=== PATIENT | male | born 2000 | race Caucasian/White ===

== ENCOUNTER 2022-02-25 08:22 | Emergency (ER) | payer BC ==
[2022-02-25 08:33] VITALS: BP 105/53; PULSE 72; RESP 18; TEMP 101.1
[2022-02-25] MEDS ORDERED: IBUPROFEN 600 MG TAB PO STA (08:41)
--- NOTE | 2022-02-25 08:44 | ED ---
Fever HPI - General Chief Complaint: Fever Stated Complaint: Fever Time Seen by Provider: 02/25/22 08:35 Source: patient, RN notes reviewed Mode of arrival: ambulatory Limitations: no limitations - History of Present Illness Initial Comments: This a 29-year-old male presents emergency Department chief complaint of a fever. Patient states started a couple days ago. Patient states that he noticed he had shaking chills and a fever at work in which she went to urgent care for. Patient states that he was swabbed for: Flu but states he did not have the results. Patient denies any chest pain. Patient states that he initially bent over to lift something up and sat up very quickly became lightheaded urgent care told that he should have a CAT scan because the symptoms. Patient states has no complaints of current headache symptoms. Patient states that is not having facial pain. Patient has no focal weakness. No vomiting. - Related Data Allergies Allergy/AdvReac Type Severity Reaction Status Date / Time No Known Allergies Allergy Verified 02/25/22 08:32 Review of Systems ROS Statement: Those systems with pertinent positive or pertinent negative responses have been documented in the HPI. ROS Other: All systems not noted in ROS Statement are negative. Past Medical History Past Medical History: No Reported History History of Any Multi-Drug Resistant Organisms: None Reported Past Surgical History: No Surgical Hx Reported Past Psychological History: Anxiety Smoking Status: Vaper Past Alcohol Use History: Occasional Past Drug Use History: Marijuana General Exam Limitations: no limitations General appearance: alert, in no apparent distress Head exam: Present: atraumatic, normocephalic, normal inspection Eye exam: Present: normal appearance, PERRL, EOMI. Absent: scleral icterus, conjunctival injection, periorbital swelling ENT exam: Present: normal exam, normal oropharynx, mucous membranes moist Neck exam: Present: normal inspection, full ROM. Absent: tenderness, meningismus, lymphadenopathy Respiratory exam: Present: normal lung sounds bilaterally. Absent: respiratory distress, wheezes, rales, rhonchi, stridor Cardiovascular Exam: Present: regular rate, normal rhythm, normal heart sounds. Absent: systolic murmur, diastolic murmur, rubs, gallop, clicks GI/Abdominal exam: Present: soft, normal bowel sounds. Absent: distended, tenderness, guarding, rebound, rigid Extremities exam: Present: full ROM. Absent: tenderness Back exam: Absent: CVA tenderness (R), CVA tenderness (L) Neurological exam: Present: alert, oriented X3, CN II-XII intact Course Vital Signs 02/25/22 08:27 Temperature 101.1 F H Pulse Rate 72 Respiratory 18 Rate Blood Pressure 105/53 O2 Sat by Pulse 98 Oximetry Medical Decision Making - Medical Decision Making Patient is COVID-19 positive. Patient's vitals are stable. Patient was given antipyretics were discussed treatment of his fever at home and increasing fluids and return parameters. - Lab Data Lab Results 02/25/22 Range/Units 08:45 Coronavirus (PCR) Detected A (Not Detectd) Disposition Clinical Impression: COVID-19 Disposition: HOME SELF-CARE Condition: Stable Instructions (If sedation given, give patient instructions): COVID-19 (Coronavirus Disease 2019) (ED) Additional Instructions: Please return to the Emergency Department if symptoms worsen or any other concerns. Is patient prescribed a controlled substance at d/c from ED?: No Referrals: Radha Hernandez MD [Primary Care Provider] - 1-2 days Time of Disposition: 09:08
--- NOTE | 2022-02-25 09:02 | XR ---
EXAMINATION TYPE: XR chest 2V DATE OF EXAM: 02/25/2022 COMPARISON: None INDICATION: Fever TECHNIQUE: Frontal and lateral views of the chest are obtained. FINDINGS: The heart size is normal. The pulmonary vasculature is normal. The lungs are clear. IMPRESSION: 1. No acute pulmonary process.
== END 2022-02-25 09:21 | disposition home or self-care (01) ==
LOC: EC 08:22
DX: U07.1 COVID-19 (principal); F17.200 Nicotine dependence, unspecified, uncomplicated
CPT/HCPCS: 71046; 87502; 87635; 99284

== ENCOUNTER → 2022-02-26 | Outpatient (CLI) | payer BC ==
--- NOTE | 2022-02-26 13:30 | XR ---
EXAMINATION TYPE: XR cervical spine comp DATE OF EXAM: 02/26/2022 CLINICAL HISTORY: pain COMPARISON: NONE TECHNIQUE: Frontal, lateral, oblique, swimmers, and open mouth view of the cervical spine are obtaine d. FINDINGS: The cervical spine is visualized in its entirety from C1 thru the top of T1 level. It is s atisfactory in alignment without evidence of acute fracture or dislocation. The pre-vertebral soft t issue appears within normal limits. Mild degenerative disc space narrowing at C5-6 and C6-7. The C1-C 2 articulation is unremarkable on the open mouth view. The oblique images are within normal limits. IMPRESSION: No acute fracture or dislocation is seen in the cervical spine.ICD 10 NO FRACTURE, INITI AL EVALUATION
== END | disposition home or self-care (01) ==
LOC: RADXRMAIN 12:59
PROVIDERS: ATTEND Internal Medicine
DX: M54.2 Cervicalgia (principal)
CPT/HCPCS: 72050

== ENCOUNTER 2023-10-14 16:48 | Emergency (ER) | payer BC ==
[2023-10-14 17:23] VITALS: TEMP 98.6
--- NOTE | 2023-10-14 18:09 | ED ---
ENT HPI - General Source: patient Mode of arrival: ambulatory Limitations: no limitations <Shan Aguero - Last Filed: 10/14/23 18:09> - General Source: patient, RN notes reviewed, old records reviewed - History of Present Illness MD complaint: sore throat -: days(s) (8) Location: throat Severity scale (1-10): 8 Quality: constant Consistency: constant Improves with: none Worsens with: swallowing (feels like "shards of glass") Associated Symptoms: pain with swallowing, sore throat, other (nausea) <Germain Musa - Last Filed: 10/14/23 20:38> - General Chief complaint: ENT Stated complaint: Cough, poss Strep Time Seen by Provider: 10/14/23 19:42 - History of Present Illness Initial comments: 23-year-old male presenting to the ED with a chief complaint of sore throat. Patient states he believes he has strep throat due to him having a sore throat for the past 7-10 days. (Shan Aguero) 23-year-old nontoxic-appearing male presents to the emergency room with complaints of 8 days of sore throat like "shards of glass". States that his friend's child was positive for strep throat last week. He did go to urgent care yesterday and was tested for strep and negative. Patient states that yesterday he developed nausea with sore throat. Has had strep in the past and states it feels similar. He denies any fevers. No abdominal pain. Mild cough with no sinus pressure or post nasal drip. (Germain Musa) - Related Data Allergies Allergy/AdvReac Type Severity Reaction Status Date / Time No Known Allergies Allergy Verified 10/14/23 17:04 Review of Systems ROS Other: All systems not noted in ROS Statement are negative. <Shan Aguero - Last Filed: 10/14/23 18:09> ROS Other: All systems not noted in ROS Statement are negative. <Germain Musa - Last Filed: 10/14/23 20:38> ROS Statement: Those systems with pertinent positive or pertinent negative responses have been documented in the HPI. Past Medical History Past Medical History: No Reported History History of Any Multi-Drug Resistant Organisms: None Reported Past Surgical History: No Surgical Hx Reported Past Psychological History: Anxiety Smoking Status: Vaper Past Alcohol Use History: Occasional Past Drug Use History: Marijuana <Shan Aguero - Last Filed: 10/14/23 18:09> General Exam Limitations: no limitations General appearance: alert, in no apparent distress Neck exam: Present: normal inspection Extremities exam: Present: normal inspection Back exam: Present: normal inspection Neurological exam: Present: alert <Shan Aguero - Last Filed: 10/14/23 18:09> Limitations: no limitations General appearance: alert, in no apparent distress Head exam: Present: atraumatic, normocephalic Eye exam: Present: normal appearance. Absent: scleral icterus, conjunctival injection, periorbital swelling, periorbital tenderness ENT exam: Present: normal oropharynx, mucous membranes moist Neck exam: Present: normal inspection, full ROM. Absent: tenderness, meningismus, lymphadenopathy, thyromegaly Respiratory exam: Present: normal lung sounds bilaterally. Absent: respiratory distress, accessory muscle use Cardiovascular Exam: Present: regular rate, normal rhythm GI/Abdominal exam: Present: soft. Absent: tenderness Extremities exam: Present: full ROM. Absent: tenderness Neurological exam: Present: alert, oriented X3 Psychiatric exam: Present: normal affect, normal mood Skin exam: Present: warm, dry, normal color. Absent: cyanosis, diaphoretic, petechiae, pallor <Germain Musa - Last Filed: 10/14/23 20:38> Course Vital Signs 10/14/23 10/14/23 17:02 20:32 Temperature 98.6 F Pulse Rate 83 81 Respiratory 16 20 Rate Blood Pressure 120/77 138/82 O2 Sat by Pulse 98 98 Oximetry Medical Decision Making <Shan Aguero - Last Filed: 10/14/23 18:09> <Germain Musa - Last Filed: 10/14/23 20:38> - Medical Decision Making Quicknote portion performed. Signed Shan Aguero PA-C (Shan Aguero) Was pt. sent in by a medical professional or institution ([facility], DRILL INSTRUCTOR, urgent care, hospital, or detention...) When possible be specific @ -No Did you speak to anyone other than the patient for history (EMS, parent, family, police, friend...)? What history was obtained from this source @ -No Did you review nursing and triage notes (agree or disagree)? Why? @ -I reviewed and agree with nursing and triage notes Were old charts reviewed (outside hosp., previous admission, EMS record, old EKG , old radiological studies, urgent care reports/EKG's, detention records)? Report findings @ -No old charts were reviewed Differential Diagnosis (chest pain, altered mental status, abdominal pain women, abdominal pain men, vaginal bleeding, weakness, fever, dyspnea, syncope, headache, dizziness, GI bleed, back pain, seizure, CVA, palpatations, mental health, musculoskeletal)? @ -Coronavirus, influenza, strep pharyngitis, URI EKG interpreted by me (3pts min.). @ -n/a X-rays interpreted by me (1pt min.). @ -None done CT interpreted by me (1pt min.). @ -None done U/S interpreted by me (1pt. min.). @ -None done What testing was considered but not performed or refused? (CT, X-rays, U/S, labs)? Why? @ -None What meds were considered but not given or refused? Why? @ -None Did you discuss the management of the patient with other professionals (professionals i.e. , PA, DRILL INSTRUCTOR, lab, RT, psych nurse, social media campaign manager, department chairperson, teacher, [employer]. revenue officer, binder caser)? Give summary @ -No Was smoking cessation discussed for >3mins.? @ -yes directed to stop vaping Was critical care preformed (if so, how long)? @ -No Were there social determinants of health that impacted care today? How? (Homelessness, low income, unemployed, alcoholism, drug addiction, transportation, low edu. Level, literacy, decrease access to med. care, intermediate, rehab)? @ -No Was there de-escalation of care discussed even if they declined (Discuss DNR or withdrawal of care, Hospice)? DNR status @ -No What co-morbidities impacted this encounter? (DM, HTN, Smoking, COPD, CAD, Cancer, CVA, ARF, Chemo, Hep., AIDS, mental health diagnosis, sleep apnea, morbid obesity)? @ -None Was patient admitted / discharged? Hospital course, mention meds given and route, prescriptions, significant lab abnormalities, going to OR and other pertinent info. @ -Discharged 23-year-old nontoxic-appearing male presents to the emergency room with complaints of 8 days of sore throat feels like swallowing "shards of glass". States that his friend's child was positive for strep throat last week. He did go to urgent care yesterday and was tested for strep and negative. Patient states that yesterday he developed nausea with sore throat. Has had strep in the past and states it feels similar. He denies any fevers. No abdominal pain. Mild cough with no sinus pressure or post nasal drip. Patient does vape daily. Abdomen soft. Kern, influenza A and B, RSV, coronavirus and strep negative. Lungs sounds are clear to auscultation oxygen saturation 98% patient is afebrile. Patient instructed to stop smoking/rate being. He was given a shot of Toradol for pain and rectal Tylenol and Motrin for pain and discomfort follow-up with his primary care doctor. Case discussed Dr. Nance Undiagnosed new problem with uncertain prognosis? @ -No Drug Therapy requiring intensive monitoring for toxicity (Heparin, Nitro, Insulin, Cardizem)? @ -No Were any procedures done? @ -No Diagnosis/symptom? @ -pharyngitis Acute, or Chronic, or Acute on Chronic? @ -Acute Uncomplicated (without systemic symptoms) or Complicated (systemic symptoms)? @ -Uncomplicated Side effects of treatment? @ -No Exacerbation, Progression, or Severe Exacerbation? @ -No Poses a threat to life or bodily function? How? (Chest pain, [place], [place], pneumonia, PE, COPD, DKA, ARF, appy, cholecystitis, CVA, Diverticulitis, Homicidal, Suicidal, threat to staff... and all critical care pts) @ -No (Germain Musa) - Lab Data Lab Results 10/14/23 10/14/23 10/14/23 Range/Units 18:43 18:43 18:43 Heterophile Antibody Negative (Negative) Influenza Type A (PCR) Not Detected (Not Detectd) Influenza Type B (PCR) Not Detected (Not Detectd) RSV (PCR) Not Detected (Not Detectd) SARS-CoV-2 (PCR) Not Detected (Not Detectd) Group A Strep (PCR) NOT DETECTED (Not Detectd) Disposition <Shan Aguero - Last Filed: 10/14/23 18:09> Is patient prescribed a controlled substance at d/c from ED?: No Time of Disposition: 20:27 <Germain Musa - Last Filed: 10/14/23 20:38> Clinical Impression: Acute pharyngitis Disposition: HOME SELF-CARE Condition: Good Instructions (If sedation given, give patient instructions): Pharyngitis (ED) Additional Instructions: Increase your fluid intake. Stop vaping. Tylenol and or Motrin as needed for pain. Follow-up with primary care doctor next week. Referrals: None,Stated [Primary Care Provider] - 1-2 days
[2023-10-14] MEDS ORDERED: KETOROLAC 15 MG/ML 1 ML VIAL IM STA (20:20)
[2023-10-14 20:34] VITALS: BP 138/82; PULSE 81; RESP 20
== END 2023-10-14 20:32 | disposition home or self-care (01) ==
LOC: EC 16:48
DX: J02.9 Acute pharyngitis, unspecified (principal); F17.290 Nicotine dependence, other tobacco product, uncomplicated; F12.90 Cannabis use, unspecified, uncomplicated; Z20.822 Contact with and (suspected) exposure to COVID-19
CPT/HCPCS: 36415; 87651; 86308; 87636; 99283; 96372; J1885

== ENCOUNTER 2024-08-06 16:58 | Emergency (ER) | payer BC ==
[2024-08-06 17:22] VITALS: BP 113/61; PULSE 67; RESP 17; TEMP 99
--- NOTE | 2024-08-06 17:24 | ED ---
General Adult HPI - General Chief complaint: Chest Pain Stated complaint: chest pain/injury Time Seen by Provider: 08/06/24 17:10 Source: patient, RN notes reviewed Mode of arrival: ambulatory Limitations: no limitations - History of Present Illness Initial comments: This is a 24-year-old male with no significant past medical history presents emergency department chief complaint of anterior and left lateral chest wall pain. Patient states that he was playing flag football when one of the components fell on top of him and he felt a crunching noise in his chest. He states that he felt short of breath for approximately 5 to 10 minutes after the event. Currently states that he has pain over the left chest. Denies any loss of consciousness at time of this event. No other acute complaints at this time. - Related Data Allergies Allergy/AdvReac Type Severity Reaction Status Date / Time No Known Allergies Allergy Verified 08/06/24 17:22 Review of Systems ROS Statement: Those systems with pertinent positive or pertinent negative responses have been documented in the HPI. ROS Other: All systems not noted in ROS Statement are negative. Past Medical History Past Medical History: No Reported History History of Any Multi-Drug Resistant Organisms: None Reported Past Surgical History: No Surgical Hx Reported Past Psychological History: Anxiety Smoking Status: Vaper Past Alcohol Use History: Occasional Past Drug Use History: None Reported, Marijuana General Exam Limitations: no limitations General appearance: alert, in no apparent distress Head exam: Present: atraumatic, normocephalic, normal inspection Neck exam: Present: normal inspection. Absent: tenderness, meningismus, lymphadenopathy Respiratory exam: Present: normal lung sounds bilaterally, chest wall tenderness (anterior left and mid-axillary ). Absent: respiratory distress, wheezes, rales, rhonchi, stridor, decreased breath sounds Cardiovascular Exam: Present: regular rate, normal rhythm, normal heart sounds. Absent: systolic murmur, diastolic murmur, rubs, gallop, clicks GI/Abdominal exam: Present: soft, normal bowel sounds. Absent: distended, tenderness, guarding, rebound, rigid Extremities exam: Present: normal inspection, full ROM, normal capillary refill. Absent: tenderness, pedal edema, joint swelling, calf tenderness Back exam: Present: normal inspection Skin exam: Present: warm, dry, intact, normal color. Absent: rash Course Vital Signs 08/06/24 17:19 Temperature 99.0 F Pulse Rate 67 Respiratory 17 Rate Blood Pressure 113/61 O2 Sat by Pulse 100 Oximetry Medical Decision Making - Medical Decision Making Was pt. sent in by a medical professional or institution (, [facility], BOILING HOUSE OILER, urgent care, hospital, or correction...) When possible be specific @ -No Did you speak to anyone other than the patient for history (EMS, parent, family, police, friend...)? What history was obtained from this source @ -No Did you review nursing and triage notes (agree or disagree)? Why? @ -I reviewed and agree with nursing and triage notes Were old charts reviewed (outside hosp., previous admission, EMS record, old EKG, old radiological studies, urgent care reports/EKG's, correction records)? Report findings @ -No old charts were reviewed Differential Diagnosis (chest pain, altered mental status, abdominal pain women, abdominal pain men, vaginal bleeding, weakness, fever, dyspnea, syncope, headache, dizziness, GI bleed, back pain, seizure, CVA, palpatations, mental health, musculoskeletal)? @ -Differential Musculoskeletal Muscular strain, contusion, ligament sprain, fracture, arthritis, septic arthritis, bursitis, cellulitis, muscle spasm, nerve compression, DVT, arterial occlusion, herpes zoster, electrolyte abnormality, tumor.... This is not meant to be in all inclusive list EKG interpreted by me (3pts min.). @ -None X-rays interpreted by me (1pt min.). @ -X-ray of the left ribs with PA chest reveals acute left rib #4 and possibly fifth rib fracture with minimal displacement. CT interpreted by me (1pt min.). @ -None done U/S interpreted by me (1pt. min.). @ -None done What testing was considered but not performed or refused? (CT, X-rays, U/S, labs)? Why? @ -None What meds were considered but not given or refused? Why? @ -None Did you discuss the management of the patient with other professionals (professionals i.e. [facility] Harper, BOILING HOUSE OILER, lab, RT, psych nurse, social services counselor, senior information security analyst, teacher, interface control officer, upper caser)? Give summary @ -No Was smoking cessation discussed for >3mins.? @ -No Was critical care preformed (if so, how long)? @ -No Were there social determinants of health that impacted care today? How? (Homelessness, low income, unemployed, alcoholism, drug addiction, transportation, low edu. Level, literacy, decrease access to med. care, care home, rehab)? @ -No Was there de-escalation of care discussed even if they declined (Discuss DNR or withdrawal of care, Hospice)? DNR status @ -No What co-morbidities impacted this encounter? (DM, HTN, Smoking, COPD, CAD, Cancer, CVA, ARF, Chemo, Hep., AIDS, mental health diagnosis, sleep apnea, morbid obesity)? @ -None Was patient admitted / discharged? Hospital course, mention meds given and route, prescriptions, significant lab abnormalities, going to OR and other per tinent info. @ -Discharged. 24-year-old male with anterior left chest wall pain after injury. Patient is noted to have pain to palpation over the anterior left chest wall. Breath sounds are equal auscultated, vitals are stable and patient's not exhibiting any signs of respiratory distress. X-ray of the chest is remarkable for left rib #4 and possibly fifth rib fracture with minimal displacement. Patient is provided with dose of Tylenol in the emergency department and a incentive spirometer instructed to use this over the next few weeks to minimize potential for pneumonia. Recommend that he continue to use Tylenol Motrin at home and rest and ice for symptomatic treatment. All questions answered at bedside and strict return parameters favian the patient has verbalized understa nding. discussed with Dr. Naqvi Undiagnosed new problem with uncertain prognosis? @ -No Drug Therapy requiring intensive monitoring for toxicity (Heparin, Nitro, Insulin, Cardizem)? @ -No Were any procedures done? @ -No Diagnosis/symptom? @ -Rib fracture Acute, or Chronic, or Acute on Chronic? @ -Acute Uncomplicated (without systemic symptoms) or Complicated (systemic symptoms)? @ -Uncomplicated Side effects of treatment? @ -No Exacerbation, Progression, or Severe Exacerbation? @ -No Poses a threat to life or bodily function? How? (Chest pain, [place], [place], pneumonia, PE, COPD, DKA, ARF, appy, cholecystitis, CVA, Diverticulitis, Homicidal, Suicidal, threat to staff... and all critical care pts) @ -No Disposition Clinical Impression: Rib fracture Disposition: HOME SELF-CARE Condition: Good Instructions (If sedation given, give patient instructions): How to Use an Incentive Spirometer (ED), Rib Fracture (ED) Additional Instructions: Return to the emergency department for any new or worsening symptoms. Continue symptomatic treatment at home cycling Tylenol and Motrin and continue to ice the affected area. Use incentive spirometer as directed. Is patient prescribed a controlled substance at d/c from ED?: No Referrals: None,Stated [Primary Care Provider] - 1-2 days Time of Disposition: 18:12
--- NOTE | 2024-08-06 18:02 | XR ---
EXAMINATION TYPE: XR ribs LT w pa chest xray DATE OF EXAM: 08/06/2024 5:51 PM CLINICAL INDICATION: Male, 24 years old with history of injury, bruising, pain; [facility] COMPARISON: 02/25/2022 TECHNIQUE: XR ribs LT w pa chest xray; Frontal and oblique views of the ribs with frontal chest radio graph. FINDINGS: Cortical irregularity to be seen on left rib 4 and 5. The remainder of the ribs have a norm al appearance. No evidence of fracture. Overall, the lungs are clear. The cardiac silhouette is nor mal in size. . IMPRESSION: Acute left rib #4 and possibly 5 fractures with minimal displacement [facility], , 08/06/2024 5:59 PM
[2024-08-06] MEDS: ACETAMINOPHEN TAB 500 MG TAB PO STA (18:52)
[2024-08-06] MEDS: ACET/COD 300 MG/30 MG STARTER PACK 6 TAB BTL PO STA (18:57)
== END 2024-08-06 19:00 | disposition home or self-care (01) ==
LOC: EC 16:58
CPT/HCPCS: 99285

== ENCOUNTER 2024-08-09 02:06 | Emergency (ER) | payer BC ==
[2024-08-09 02:11] VITALS: BP 131/88; TEMP 97.8
--- NOTE | 2024-08-09 04:06 | ED ---
General Adult HPI - General Chief complaint: Shortness of Breath Stated complaint: LIBERTY Time Seen by Provider: 08/09/24 03:26 Source: patient Mode of arrival: ambulatory Limitations: no limitations - History of Present Illness Initial comments: Patient is a 24-year-old male presenting today for left-sided rib pain. Patient states he was recently in the emergency department and diagnosed with rib fractures. Discharged home with Tylenol threes. States last dose of Tylenol 3 was yesterday. This morning he woke up and so much pain that he felt like he could not breathe. Endorses shortness of breath due to pain with deep breathing, otherwise denies cough, hemoptysis, cough productive of sputum, fevers or difficulty breathing. Denies lower extremity swelling. - Related Data Previous Rx's Medication Instructions Recorded HYDROcodone/APAP 5-325MG [[place] 1 tab PO Q8HR PRN 3 Days #12 tab 08/09/24 5-325] Lidocaine 4% Patch 1 patch TOPICAL Q12HR PRN #6 patch 08/09/24 Allergies Allergy/AdvReac Type Severity Reaction Status Date / Time No Known Allergies Allergy Verified 08/06/24 17:22 Review of Systems ROS Statement: Those systems with pertinent positive or pertinent negative responses have been documented in the HPI. Past Medical History Past Medical History: No Reported History Additional Past Medical History / Comment(s): fx ribs History of Any Multi-Drug Resistant Organisms: None Reported Past Surgical History: No Surgical Hx Reported Past Psychological History: Anxiety Smoking Status: Vaper Past Alcohol Use History: Occasional Past Drug Use History: None Reported General Exam - General Exam Comments Initial Comments: PE: CONSTITUTIONAL: No apparent distress, well appearing SKIN: Warm, dry, no jaundice, hives or petechiae EYES: Pupils are equally round, extraocular movements intact without nystagmus, clear conjunctiva, non-icteric sclera HENT: Normocephalic, atraumatic, moist mucus membranes, oropharynx clear without exudates NECK: , Full range of motion, normal appearance PULMONARY: Decreased excursion due to pain with deep breathing clear to auscultation without wheezes, rhonchi, or rales, tenderness location left ribs laterally no accessory muscle use and no stridor CARDIOVASCULAR: Regular rate, rhythm, normal S1 and S2. No appreciated murmurs, rubs or gallops. 70s pink well-perfused no lower extremity edema GASTROINTESTINAL: Soft, non-tender, non-distended, no palpable masses, no rebound or guarding. No hepatosplenomegaly MUSCULOSKELETAL: Extremities have no gross deformity, no edema, redness, or swelling. No calf swelling NEUROLOGIC:_a/o x 3, GCS 15, normal mentation and speech. Moves all extremities x 4 without motor or sensory deficit PSYCHIATRIC:_normal mood and affect, thought process is clear and linear Limitations: no limitations Course Vital Signs 08/09/24 08/09/24 02:08 04:25 Temperature 97.8 F Pulse Rate 61 85 Respiratory 22 18 Rate Blood Pressure 131/88 O2 Sat by Pulse 100 99 Oximetry Medical Decision Making - Medical Decision Making Was pt. sent in by a medical professional or institution (, PA, LOCOMOTIVE ENGINEER [employer]IC, urgent care, hospital, or longterm...) When possible be specific @ -No Did you speak to anyone other than the patient for history (EMS, parent, family, police, friend...)? What history was obtained from this source @ -No Did you review nursing and triage notes (agree or disagree)? Why? @ -I reviewed and agree with nursing and triage notes Were old charts reviewed (outside hosp., previous admission, EMS record, old EKG, old radiological studies, urgent care reports/EKG's, longterm records)? Report findings @ -Reviewed patient's recent ED visit on 08/06/2024, including XR, which showed rib fractures likely on ribs 4/5 patient was diagnosed with rib fractures and discharged home with Tylenol 3's Differential Diagnosis (chest pain, altered mental status, abdominal pain women, abdominal pain men, vaginal bleeding, weakness, fever, dyspnea, syncope, headache, dizziness, GI bleed, back pain, seizure, CVA, palpatations, mental health, musculoskeletal)? @ -Differential Musculoskeletal Muscular strain, contusion, ligament sprain, fracture, pneumothorax.... This is not meant to be in all inclusive list EKG interpreted by me (3pts min.). @ -As above X-rays interpreted by me (1pt min.). @Left-sided rib fractures noted, nondisplaced, no pneumothorax CT interpreted by me (1pt min.). @ -None done U/S interpreted by me (1pt. min.). @ -None done What testing was considered but not performed or refused? (CT, X-rays, U/S, labs)? Why? @ -None What meds were considered but not given or refused? Why? @ -None Did you discuss the management of the patient with other professionals (professionals i.e. , PA, LOCOMOTIVE ENGINEER [employer], lab, RT, psych nurse, hospice social worker, business lawyer, teacher, field crop technical officer, behavioral health case manager)? Give summary @ -No Was smoking cessation discussed for >3mins.? @ -No Was critical care preformed (if so, how long)? @ -No Were there social determinants of health that impacted care today? How? (Homelessness, low income, unemployed, alcoholism, drug addiction, transportation, low edu. Level, literacy, decrease access to med. care, nursing home, rehab)? @ -No Was there de-escalation of care discussed even if they declined (Discuss DNR or withdrawal of care, Hospice)? @ -No What co-morbidities impacted this encounter? (DM, HTN, Smoking, COPD, CAD, Cancer, CVA, ARF, Chemo, Hep., AIDS, mental health diagnosis, sleep apnea, morbid obesity)? @ -None Was patient admitted / discharged? Hospital course, mention meds given and route, prescriptions, significant lab abnormalities, going to OR and other pertinent info. @ -Hospital course discharged Patient is a pleasant 24-year-old male presenting for left rib pain and difficulty taking deep breath due to pain after recently diagnosed with rib fractures. Cannot control pain at home with Tylenol or Tylenol 3's. On assessment patient overall well-appearing in no acute distress. Lungs are clear to auscultation bilaterally though decreased excursion due to pain with deep breathing. Tenderness to palpation over left ribs, no bruising or crepitus. Extremities are pink and well-perfused, normal S1-S2 on cardiac exam, no lower extremity edema. Plan for discharge home with [place], will administer [place], Toradol Tylenol and lidocaine patch here. Patient is agreeable with plan. Reviewed x-ray. Rib fractures near ribs 4 and 5 noted. No pneumothorax. No pleural effusion. Updated patient to findings. Patient comfortable discharge. In my medical judgment there is currently no evidence of an immediate life- threatening or surgical condition. Discharge is therefore indicated at this time. Discharge treatment instructions, follow up instructions, and appropriate emergency department return precautions were discussed with the patient and/or medical decision maker. Patient and/or medical decision maker expressed understanding of and agreed with the treatment plan, follow up instructions, and emergency department return precaution. All patient's and/or medical decision maker's questions were answered. Undiagnosed new problem with uncertain prognosis? @ -No Drug Therapy requiring intensive monitoring for toxicity (Heparin, Nitro, Ins ulin, Cardizem)? @ -No Were any procedures done? @ -No Diagnosis/symptom? @Rib fractures Acute, or Chronic, or Acute on Chronic? @Acute Uncomplicated (without systemic symptoms) or Complicated (systemic symptoms)? @ -Uncomplicated Side effects of treatment? @ -No Exacerbation, Progression, or Severe Exacerbation? @ -No Poses a threat to life or bodily function? How? (Chest pain, [place], NH, pneumonia, PE, COPD, DKA, ARF, appy, cholecystitis, CVA, Diverticulitis, Homicidal, Suicidal, threat to staff... and all critical care pts) @ -No Disposition Clinical Impression: Rib fracture Disposition: HOME SELF-CARE Condition: Good Additional Instructions: Every disease is a spectrum and a small chance still exists that a serious condition could develop, for this reason, please monitor yourself closely for new, changing or worsening symptoms, symptoms that do not improve in 72 hours, coughing up blood or thick sputum, difficulty in breathing, chest pain, swelling in your legs, lightheadedness or dizziness, [fever], inability to tolerate/keep down fluids or your medications, inability to follow up with outpatient providers as instructed and should you experience these symptoms or should you have any further concerns for your wellbeing please return to the ED or call 911 immediately. Your pain can be treated with ibuprofen and acetaminophen. You can take up to 400-600 mg of ibuprofen (Advil, Motrin) 3 times daily (every 8 hours) but can also use lower doses if this relieves your pain. Some people prefer naproxen (Aleve, Naprosyn) which can be taken in doses of 500 mg up to twice a day. Do not take both of these medicines together, and do not combine either with keto rolac (Toradol), meloxicam (Mobic), or indomethacin (Tivorbex). Some people can develop stomach discomfort with higher doses of either ibuprofen or naproxen, if this develops decrease your dose or stop taking it. If you need to take this dose daily for more than a week, please schedule an appointment for re- evaluation with your PCP. Please take these medications with food. You can take up to 1000 mg of acetaminophen (Tylenol) every 6 hours. Be careful as this is included in some medicines like Nyquil, [place], Percocet, Vicodin, STANBACK, Goody's Powders, and Excedrin. You can also use lidocaine patches for topical pain. You can purchase 4% patches over the counter at most drug stores. These can be helpful for pain from your muscles or bones. PLEASE call your primary care physician as soon as possible to arrange / discuss plan for followup appointment. Appointment in the next 1-3 days is strongly encouraged if possible. PLEASE let us know here before you leave if there is anything further we can do to be of any assistance. Take care and feel Better! Prescriptions: Lidocaine 4% Patch 1 patch TOPICAL Q12HR PRN #6 patch PRN Reason: Pain HYDROcodone/APAP 5-325MG [[place] 5-325] 1 tab PO Q8HR PRN 3 Days #12 tab PRN Reason: Breakthrough Pain Is patient prescribed a controlled substance at d/c from ED?: Yes When asked, does pt state using other controlled substances?: Yes If prescribed controlled substance>3 days was MAPS reviewed?: Yes If opioid is for acute pain is fill amount 7 days or less?: Yes If Rx opioid, was Start Talking consent form obtained?: Yes Referrals: None,Stated [Primary Care Provider] - 1-2 days
[2024-08-09] MEDS: LIDOCAINE 4% PATCH TOPICAL ONE (04:15)
[2024-08-09] MEDS: KETOROLAC 15 MG/ML 1 ML VIAL IM STA (04:16)
[2024-08-09] MEDS: ACETAMINOPHEN TAB 500 MG TAB PO STA (04:16)
[2024-08-09] MEDS: HYDROcodone/APAP 5-325MG 1 EACH TAB PO STA (04:17)
[2024-08-09 04:30] VITALS: PULSE 85; RESP 18
--- NOTE | 2024-08-09 06:11 | XR ---
EXAM: XR Chest, 2 Views CLINICAL HISTORY: Reason: shortness of breath TECHNIQUE: Frontal and lateral views of the chest. COMPARISON: No relevant prior studies available. FINDINGS: Lungs: Normal lung volumes. No airspace consolidation. No pulmonary edema. Pleural space: Unremarkable. No pneumothorax. Heart: Unremarkable. No cardiomegaly. Mediastinum: Unremarkable. Normal mediastinal contour. Bones/joints: There are minimally displaced fractures of the anterolateral left fourth and fifth ribs. IMPRESSION: Minimally displaced anterolateral left fourth and fifth rib fractures. No acute cardiopulmonary abnormality.
== END 2024-08-09 04:30 | disposition home or self-care (01) ==
LOC: EC 02:06
CPT/HCPCS: 71111; 96372; 99285

== ENCOUNTER 2025-03-10 08:49 | Day surgery (SDC) | payer BC ==
[2025-03-07 15:48] VITALS: BMI 25.0
[~2025-03-10 08:49] MED LIST: Pre Op ABX Message 1 EACH MISC MISCELLANE ONE; fentaNYL (PF) 50 MCG/ML 2 ML AMP IVP PRN
[2025-03-10] MEDS: LACTATED RINGERS 1,000 ML IV SCH (09:30)
[2025-03-10] MEDS: IV FLUID CONTINUATION 1,000 ML IV ONE ×2 (09:30→11:22)
[2025-03-10] MEDS: LIDOCAINE 1% (10MG/ML) FOR IV START INTRADERMA PRN (09:30)
[2025-03-10] MEDS: HEPARIN SODIUM,PORCINE 5,000 UNIT/ML 1 ML VIAL SQ PRN (09:38)
[2025-03-10] MEDS: ONDANSETRON 4 MG/2 ML VIAL IVP ONE (09:38)
[2025-03-10] MEDS: ACETAMINOPHEN TAB 500 MG TAB PO PRN (09:38)
[2025-03-10] MEDS: DEXAMETHASONE SOD PHOSPHATE 4 MG/ML 1 ML VIAL IV ONE (09:38)
[2025-03-10] MEDS: MIDAZOLAM 2 MG/2 ML VIAL IV PRN (09:56)
[2025-03-10] MEDS ORDERED: fentaNYL (PF) 50 MCG/ML 2 ML AMP ONE (10:14)
[2025-03-10] MEDS ORDERED: PROPOFOL 10 MG/ML 20 ML VIAL IV ONE (10:14)
[2025-03-10] MEDS ORDERED: LIDOCAINE 1% INJ 10MG/ML (20 ML MDV) ONE (10:14)
[2025-03-10] MEDS ORDERED: MIDAZOLAM 2 MG/2 ML VIAL ONE (10:14)
[2025-03-10] MEDS: SODIUM CHLORIDE 0.9% 50 ML with ceFAZolin 2,000 MG IV ONE (10:30)
[2025-03-10] MEDS: LIDOCAINE 1%-EPI 1:100,000 20 ML VIAL SQ ONE (10:37)
--- NOTE | 2025-03-10 10:49 | P.OP ---
Date of Procedure: 03/10/25 Preoperative Diagnosis: Chest wall mass Postoperative Diagnosis: left chest wall lymph node Procedure(s) Performed: Excision of left chest wall lymph node Anesthesia: WILLY Surgeon: Benito Davenport Estimated Blood Loss (ml): 5 Pathology: other (Lymph node) Condition: stable Disposition: PACU Description of Procedure: Patient is placed on the op table in the supine position. He received general anesthesia. His left chest was prepped draped you sterile fashion. Patient had a 3 cm mass. This was dissected by incised the skin over the mass and using blunt sharp dissection with cautery. The mass appeared to be a lymph node. This was sent to pathology. The skin was closed interrupted 3-0 Monocryl suture. Dermabond dressings applied. Patient Toller procedure well. He was sent to recovery room in stable condition.
[2025-03-10 10:58] VITALS: TEMP 97.1
[2025-03-10] MEDS: HYDROmorphone 0.5 MG/0.5 ML SYRINGE IVP PRN (11:46)
[2025-03-10 12:27] VITALS: BP 106/73; PULSE 57; RESP 18
== END 2025-03-10 12:44 | disposition home or self-care (01) ==
LOC: OR 08:49
PROVIDERS: ATTEND Surgery
DX: D17.1 Benign lipomatous neoplasm of skin and subcutaneous tissue of trunk (principal); L30.9 Dermatitis, unspecified; F17.290 Nicotine dependence, other tobacco product, uncomplicated; Z79.899 Other long term (current) drug therapy
CPT/HCPCS: 38500; 88305; 88342; 88341; J2250; J1644; J1100; J2405; J0690; J2003; J3010; J2704; J1171